=== PATIENT | male | born 1970 | race Caucasian/White ===

== ENCOUNTER → 2020-09-18 | Outpatient (REF) ==
--- NOTE | 2020-09-18 14:35 | REP ---
INDICATION: ARTHRITIS. COMPARISON: None. TECHNIQUE: Routine FINDINGS: Normal alignment and bone texture. Slight narrowing medial compartment. No fracture or dislocation. Small joint effusion. IMPRESSION: Slight narrowing medial compartment. Joint effusion. Normal bone texture in alignment. <Electronically signed by Rito Coats > 09/18/20 [id number]
--- NOTE | 2020-09-18 14:36 | REP ---
INDICATION: ARTHRITIS. COMPARISON: None. TECHNIQUE: Routine FINDINGS: Normal alignment. No fractures. For set arthropathy. Disc spaces well maintained. Pedicles intact there is sacroiliac joints unremarkable. IMPRESSION: Normal alignment. No fractures. Facet arthropathy. <Electronically signed by Rito Coats > 09/18/20 [id number]
== END ==
LOC: M PLAIMG 14:09
PROVIDERS: ATTEND Internal Medicine
DX: M17.11 Unilateral primary osteoarthritis, right knee (principal); M46.96 Unspecified inflammatory spondylopathy, lumbar region; M25.461 Effusion, right knee